=== PATIENT | male | born 1975 | race Caucasian/White ===

== ENCOUNTER 2019-10-10 17:51 | Emergency (ER) | payer SELFPAY ==
[~2019-10-10] VITALS: Ht 175.2 cm; Wt 81.6 kg
[~2019-10-10 17:51] MED LIST: AMOXICILLIN500 MG PO; FLEXERIL5 MG PO; KEFLEX500 MG PO; LIDEX0.05% T; MEDROL DOSEPAK4 MG PO; MOTRIN800 MG PO; NO DAILY MEDS; PREDNICOT20 MG PO; TRAMADOL HCL50 MG PO; ZANTAC150 MG PO; ZITHROMAX Z PA250 MG PO
[2019-10-10 18:28] VITALS: BP 128/87
[2019-10-10] MEDS ORDERED: VIBRAMYCIN100 MG PO (18:38)
== END 2019-10-10 19:06 | disposition home or self-care (01) ==
LOC: ED 17:51
DX: S70.361A Insect bite (nonvenomous), right thigh, initial encounter (principal); I10 Essential (primary) hypertension; E78.00 Pure hypercholesterolemia, unspecified; F41.9 Anxiety disorder, unspecified; Z88.8 Allergy status to other drugs, medicaments and biological substances; Z90.49 Acquired absence of other specified parts of digestive tract; W57.XXXA Bitten or stung by nonvenomous insect and other nonvenomous arthropods, initial encounter; Y93.89 Activity, other specified; Y92.89 Other specified places as the place of occurrence of the external cause; Y99.8 Other external cause status

== ENCOUNTER 2024-12-18 19:45 | Emergency (ER) | payer SELFPAY ==
[~2024-12-18] VITALS: Ht 180.3 cm; Wt 65.8 kg
[~2024-12-18 19:45] MED LIST changes: +VIBRAMYCIN100 MG PO
[2024-12-18 20:05] VITALS: BP 159/97
[2024-12-18] MEDS ORDERED: SODIUM CHLORIDE 0.9% 1,000 ML IV ONE (20:15)
[2024-12-18 20:26] LABS: MEAN CELL VOLUME 91.3 fl (80.0-94.0); MEAN CORPUSCULAR HGB 30.7 pg (27.0-31.0); MEAN PLATELET VOLUME 10.4 fl (9.6-12.3); NUCLEATED RED BLOOD CELL 0.0 % (0.0-0.0); NUCLEATED RED BLOOD CELL 0.0 10*3/uL (0.0-0.0); PLATELET COUNT AUTOMATED 309 10*3/uL (130-400); RED CELL DISTRI WIDTH 15.9 % (0-14.5)
[2024-12-18 20:32] LABS: MANUAL DIFF REFLEX YES
[2024-12-18 20:46] LABS: BUN 16 mg/dl (9-23)
[2024-12-18 20:52] LABS: PLATELET SUFFICIENCY NORMAL (NORMAL)
== END 2024-12-18 22:47 | disposition home or self-care (01) ==
LOC: ED 19:45
PROVIDERS: Nurse Practitioner Family
DX: T67.9XXA Effect of heat and light, unspecified, initial encounter (principal); E86.0 Dehydration; Z98.890 Other specified postprocedural states; Z90.81 Acquired absence of spleen; X30.XXXA Exposure to excessive natural heat, initial encounter; Y93.89 Activity, other specified; Y92.89 Other specified places as the place of occurrence of the external cause; Y99.8 Other external cause status

== ENCOUNTER 2025-05-02 14:20 | Emergency (ER) | payer SELFPAY ==
[~2025-05-02] VITALS: Ht 180.3 cm; Wt 89.8 kg
[2025-05-02 14:29] VITALS: BP 137/82
== END 2025-05-02 14:56 | disposition left against medical advice (07) ==
LOC: ED 14:20
DX: E16.2 Hypoglycemia, unspecified (principal); Z53.21 Procedure and treatment not carried out due to patient leaving prior to being seen by health care provider